=== PATIENT | female | born 1995 | race Caucasian/White ===

== ENCOUNTER 2022-01-26 19:00 | Inpatient (IN) | payer BC, SELFPAY ==
[2022-01-26 19:33] VITALS: PULSE 95; O2SAT 98
[2022-01-26 19:34] VITALS: BP 140/84; PULSE 97
[2022-01-26 19:35] VITALS: TEMP 36.6
[2022-01-26 19:42] VITALS: BMI 31.6
[2022-01-26] MEDS: Lactated Ringers 1,000 ML 50 ML IV (19:45)
[2022-01-26 20:10] LABS: Absolute Lymphocyte Count 1.58 X10^3/uL (0.83-4.51); Absolute Neutrophil Count 9.6 X10^3/uL (2.0-7.7); Basophil# 0.03 X10^3/uL; Basophil% 0.2 % (0-1); Eosinophil# 0.05 X10^3/uL; Eosinophils% 0.4 % (0-5); Hematocrit 37.7 % (37-47); Lymphocyte # 1.58 X10^3/ul (0.83-4.51); Lymphocyte % 13.1 % (19-41); Mean Corp Hgb Conc 34.5 g/dL (32-36); Mean Corpuscular Hgb 30.7 pg (27.0-32.0); Mean Corpuscular Volume 89.1 fL (81-99); Mean Platelet Vol. 11.5 fl (6.2-12.0); Monocyte# 0.59 X10^3/uL; Monocyte% 4.9 % (0-10); NRBC Flagged by Analyzer 0 % (0-5); Neutrophil # 9.55 X10^3/uL (2.7-7.7); Neutrophil % 79.3 % (47-70); Platelet Count 173 K/mm3 (150-450); RBC Distribution Width CV 12.3 % (11.6-14.6); RBC Distribution Width SD 39.8 fl (35.1-43.9); Red Blood Count 4.23 M/mm3 (4.2-5.4); White Blood Count 12.1 K/mm3 (4.4-11.0)
[2022-01-26] MEDS: miSOPROStol 25 MCG TABLET PO (20:55)
--- NOTE | 2022-01-26 21:46 | HP.PCM.OB_ITS ---
HPI - General General Date of Admission: 01/26/22 HPI Narrative REMEDIOS REYEZ, is a 26 F who presents at 39w2d for elective induction of labor. . uncomplicated. Maternal Data Information Final BEBETO: 01/24/22 Final BEBETO Source: LMP PFSH PFSH Medical History no medical history Home Medications bfdrigbe-[id number]-Rb-FA 1 mg tablet 1 tab PO 1XD Check with primary doctor 01/26/22 [History Last Taken 01/25/22] Allergy/AdvReac Type Severity Reaction Status Date / Time No Known Allergies Allergy Verified 01/26/22 19:40 Surgical History no surgical history Social History Smoking Status: Never smoker History Elective abortions Hx Para 0 Spontaneous abortions Hx # Term Pregnancies Ectopic pregnancies Hx # Pregnancies Multiple births # of living children NST FHR Rate Baby A Baseline: 125 Variability:: Moderate Accelerations:: 15 x 15 Decelerations:: None FHR Category:: Category I Uterine Activity:: None ROS Constitutional Constitutional: Reports systems reviewed and no addt'l complaints, except as documented; Denies headache(s) Eyes Eyes: Denies acute decrease in peripheral vision, blurry vision or change in vision ENT HEENT: Reports systems reviewed and no addt'l complaints, except as documented Cardiovascular Cardiovascular: Denies chest pain or dizziness Respiratory/Chest Respiratory/Chest: Denies cough, dyspnea, dyspnea on exertion, shortness of breath at rest or shortness of breath with exertion Gastrointestinal Gastrointestinal: Denies abdominal pain, diarrhea, nausea or vomiting Genitourinary Genitourinary: Denies abdominal discomfort or movement Musculoskeletal Musculoskeletal: Denies limited range of motion Integumentary Integumentary: Reports systems reviewed and no addt'l complaints, except as documented Neurologic Neurologic: Reports systems reviewed and no addt'l complaints, except as documented Psychiatric Psychiatric: Reports systems reviewed and no addt'l complaints, except as documented Endocrine Endocrinology: Reports systems reviewed and no addt'l complaints, except as documented Hematologic/Lymphatic Hematologic/Lymphatic: Reports systems reviewed and no addt'l complaints, except as documented Allergic/Immunologic Allergic/Immunologic: Reports systems reviewed and no addt'l complaints, except as documented Vital Signs Vital Signs Vital Signs: 01/26/22 19:33 01/26/22 19:33 01/26/22 19:34 Temperature Temperature Source Pulse Rate 95 Blood Pressure 140/84 H BP Systolic 140 BP Diastolic 84 Pulse Ox 98 01/26/22 19:34 01/26/22 19:35 01/26/22 19:34 Temperature 97.9 F Temperature Source Temporal Pulse Rate 97 Blood Pressure BP Systolic BP Diastolic Pulse Ox Weight Weight: 184 lb Body Mass Index (BMI) 31.6 Physical Exam Const alert and oriented x3 General Appearance: cooperative Orientation / Consciousness: awake, oriented to person, oriented to place and oriented to time Exam Limitations: no limitations HEENT normocephalic Head and Scalp: normal to inspection, normocephalic and atraumatic Face and Sinus: normal facial exam Eyes General Eye: normal appearance of both eyes Neck full ROM Chest Chest: symmetrical chest wall rise Resp normal respiratory effort and normal air movement Auscultation: clear to auscultation bilaterally Cardio regular rate, regular rhythm, S1 normal heart sound, S2 normal heart sound, no murmurs, no rub, no gallops and no clicks GI normal to inspection, nondistended, normoactive bowel sounds and non-tender appearance of the vagina normal Bladder / Kidney Exam: no CVA tenderness Back/Spine normal ROM Extremity normal to inspection and full ROM Skin no rashes or lesions noted Neuro oriented x3, CN's II-XII intact bilaterally and moves all extremities Sensorium / Orientation: awake, alert and oriented to person Motor Exam: clonus absent Deep Tendon Reflexes: Rt Patellar (L4): 2+ and Lt Patellar (L4): 2+ Labs Labs Labs: Blood Type O POSITIVE Antibody Screen NEGATIVE Hct 37.7 % (37-47) Hgb 13.0 g/dL (12.0-15.0) HIV negative RPR negative HepB negative Rubella Immune GC/CT negative GBS negative Assessment & Plan (1) Encounter for elective induction of labor: PLAN: Plan 1) Admit for induction of labor 2) Routine labs 3) Cytotec PO with julio for cervical ripening. Then pitocin per policy as indicated 4) Continuous EFM 5) Pain management upon request 6) [facility] physician and notified of patient status
[2022-01-26 22:44] VITALS: BP 141/83; PULSE 84
[2022-01-26 22:45] VITALS: PULSE 82; TEMP 36.7; O2SAT 100
[2022-01-26] MEDS: 0.9% Normal Saline Single 100 ML IV.SOLN. INTRA-UTER (22:53)
--- NOTE | 2022-01-26 22:57 | OB.TRI.PN_ITS ---
Progress Notes Progress Note: Resting in bed. O: Hein catheter inserted intracervically, 30ml NS instilled. Patient tolerated well A:Induction of labor P: 1) Hein and cytotec for cervical ripening 2) BP mildly elevated, preeclampsia labs Laboratory Studies: Laboratory Tests 01/26/22 01/26/22 Range/Units 19:45 19:45 WBC 12.1 H (4.4-11.0) K/mm3 RBC 4.23 (4.2-5.4) M/mm3 Hgb 13.0 (12.0-15.0) g/dL Hct 37.7 (37-47) % MCV 89.1 (81-99) fL MCH 30.7 (27.0-32.0) pg MCHC 34.5 (32-36) g/dL RDW Std Deviation 39.8 (35.1-43.9) fl RDW Coeff of Jessi 12.3 (11.6-14.6) % Plt Count 173 (150-450) K/mm3 MPV 11.5 (6.2-12.0) fl Immature Gran % (Auto) 2.100 H (0.0-0.9) % Neut % (Auto) 79.3 H (47-70) % Lymph % (Auto) 13.1 L (19-41) % [place] % (Auto) 4.9 (0-10) % Eos % (Auto) 0.4 (0-5) % Baso % (Auto) 0.2 (0-1) % Absolute Neuts (auto) 9.6 H (2.0-7.7) X10^3/uL Absolute Lymphs (auto) 1.58 (0.83-4.51) X10^3/uL Nucleated RBC % 0 (0-5) % Blood Type O POSITIVE Antibody Screen NEGATIVE
[2022-01-26 23:50] LABS: AST(SGOT) 14 U/L (15-37); Alanine Aminotransfer ALT/SGPT 16 U/L (13-56); Creatinine, Serum 0.64 mg/dL (0.55-1.02); EST Glomerular Filtration Rate 118 mL/min (>60); Est Glom Filt Rate - Afr Amer 142 mL/min (>60); Estimated Creatinine Clearance 115.03 ml/min
[2022-01-27] VITALS (52 sets, daily range): BP systolic 110–143; BP diastolic 7–89; PULSE 72–111; RESP 14–16; TEMP 35.9–37.7; O2SAT 97–100
[2022-01-27 00:20] LABS: Protein, Urine (Random) 15.8 mg/dL (<11.9); Protein:Creat Ratio 350 mg/g CRE (0-200)
[2022-01-27] MEDS: miSOPROStol 25 MCG TABLET PO ×2 (01:11→05:26)
--- NOTE | 2022-01-27 09:08 | PCM.PN.OB ---
Subjective Subjective Patient comfortable Objective Data Objective Data Vital Signs: Vital Signs Temp Pulse BP Pulse Ox 98.4 F 90 139/81 H 99 01/27/22 08:54 01/27/22 08:54 01/27/22 08:54 01/27/22 08:54 Weight: 184 lb Body Mass Index (BMI) 31.6 Lab / Micro Data Result Diagrams: 01/26/22 19:45 01/26/22 23:05 Labs: Laboratory Results - last 24 hr 01/26/22 19:45: WBC 12.1 H, RBC 4.23, Hgb 13.0, Hct 37.7, MCV 89.1, MCH 30.7, MCHC 34.5, RDW Std Deviation 39.8, RDW Coeff of Jessi 12.3, Plt Count 173, MPV 11.5, Immature Gran % (Auto) 2.100 H, Neut % (Auto) 79.3 H, Lymph % (Auto) 13.1 L, [place] % (Auto) 4.9, Eos % (Auto) 0.4, Baso % (Auto) 0.2, Absolute Neuts (auto) 9.6 H, Absolute Lymphs (auto) 1.58, Nucleated RBC % 0 01/26/22 19:45: Blood Type O POSITIVE, Antibody Screen NEGATIVE 01/26/22 23:05: Creatinine 0.64, Estim Creat Clear Calc 115.03, Est GFR (MDRD) Af Amer 142, Est GFR (MDRD) Non-Af 118, Uric Acid 5.0, AST 14 L, ALT 16 01/26/22 23:55: U Random Total Protein 15.8 H, Urine Creatinine 45.10, Protein/Creatinin Ratio 350 H Micro: Microbiology 01/26/22 19:45 Nasal Secretion SARS-CoV-2 Antigen (Rapid) - Final Physical Exam Narrative: cvx - 4/70/-3 NST FHR Rate Baby A Baseline: 130 Variability:: Moderate Accelerations:: 15 x 15 Decelerations:: None Uterine Activity:: Irregular Assessment & Plan (1) Encounter for elective induction of labor: PLAN: AROM clear fluid will start pitocin at 9:30am
[2022-01-27] MEDS: Oxytocin 30 units/NS 500 ml 30 UNITS/500 ML IV.SOLN IV (09:47)
[2022-01-27] MEDS: Lactated Ringers 1,000 ML 50 ML IV (12:27)
[2022-01-27] MEDS: LACTATED RINGERS 500 ML 999 ML IV ×2 (13:00→14:26)
[2022-01-27] MEDS: fentaNYL-bupivacaine (epidural) 100 ML BAG EPIDURAL (13:55)
[2022-01-27] MEDS: Amnioinfusion- 0.9% NS 1,000 ML IV.SOLN. 1000 ML INTRA-UTER (14:52)
[2022-01-27] MEDS: Acetaminophen 500 MG Tablet PO (16:46)
[2022-01-27] MEDS: Sodium Citrate/Citric Acid 30 ML UDC PO (16:47)
[2022-01-27] MEDS: Cefazolin 2 GM in 0.9% Normal Saline 100 ML IV (17:10)
--- NOTE | 2022-01-27 17:52 | EX.PCM.OBRPT ---
Maternal Data Information Final BEBETO: 01/31/22 Gestational age: 40&3 Details Operative Information Date of Procedure: 01/27/22 Pre-Operative Diagnosis: (1) Inability of fetus to tolerate labor (2) Dermal implant in place Post-Operative Diagnosis: Same Indications Narrative: The patient was taken to the operating room where epidural anesthesia was placed & found to be adequate. She was prepped and draped in the dorsal supine position with a leftward tilt. Patients right sided (RLQ of abdomen) dermal implant was removed by grasping it with an mila & then using a scalpel to excise it. A Pfannenstiel skin incision was then made approximately 2 cm above the symphysis pubis and carried through to the underlying fascia with the scalpel. The fascia was incised incised in the midline and extended laterally with the Cuevas scissors. The rectus muscles were in the midline and the peritoneum was entered carefully and bluntly. The peritoneal incision was stretched and the bladder blade was inserted. Vesicouterine peritoneum was tented up, incised & then bladder flap created gently. The uterine incision was made in a low transverse fashion with the scalpel and extended superiorly and inferiorly with blunt dissection. The 's head was brought to the incision in the flexed position and delivered without difficulty. The head was gently guided to allow delivery of the anterior and posterior shoulders. The body then delivered with fundal pressure in the standard fashion. The 3VC cord was clamped and cut in delayed fashion. The was handed off to the waiting pediatric psychologist. The placenta was delivered with fundal massage and gentle traction in the standard fashion. The uterus was exteriorized and cleared of clots and debris. The uterine incision was closed with #1 Vicryl suture in a running locked fashion. Monocryl suture was used in an imbricating fashion. The incision was examined and was found to be hemostatic. 1 figure of 8 suture was placed over the blader flap in addition to bovie cautery to obtain excellent hemostasis. The uterus was returned to the abdominal cavity. After irrigating Floridalma was placed over the uterine incision as some areas were denuded (but hemostatic). The peritoneum was closed with vicryl suture in running fashion The rectus muscle was examined and any bleeding was Bovie cauterized. The fascia was closed with PDS suture in a running standard fashion. The subcutaneous tissue was examining and any bleeding was Bovie cauterized. The subcutaneous tissue was reapproximated with interrupted sutures. The skin & dermal implant excision site was closed in a subcuticular fashion by the CATEGORY MANAGER while I was present in the labor & delivery unit. The remainder of the procedure was performed by me with assistance. All sponge, lap, and needle counts were correct. The patient was taken to her room for recovery in a stable condition. Classification: NIR Procedure Type: low transverse (with excision of dermal implant) Type of Anesthesia: Spinal Antibiotic Given: Ancef 2 grams IV x1 and Zithromax 500 mg/5 mL X1 Drain: Hein to straight drain Estimated Blood Loss: 800ml Fluids Replaced: 1,000ml Procedure Start Time: 17:14 Procedure Stop Time: 18:00 Findings Description of Procedure: Normal maternal uterus and adnexa Presentation: Positive for Vertex Amniotic Membrane Rupture Type: Artificial Amniotic Fluid Description: Clear Placental Delivery Description: Expressed Placenta Disposition: [facility] Specimen(s) Sent to Pathology: None Cord Vessel Description: 3 Vessels Cord Entanglement: - (Around body x2, tight & with compression) Infant A Gender: Female (weight = 7lbs, [place]) (1 minute): 8 (5 minute): 9 Delayed Cord Clamping: Yes Complications Complications: None
[2022-01-27] MEDS: Ketorolac 30 MG/ML Syringe IV ×2 (18:27→23:56)
[2022-01-27] MEDS: Oxytocin 30 units/NS 500 ml 30 UNITS/500 ML IV.SOLN 167 UNITS IV (18:30)
[2022-01-27] MEDS: Lactated Ringers 1,000 ML 100 ML IV (21:42)
[2022-01-27] MEDS: Acetaminophen 500 MG Tablet 1000 MG PO (23:56)
[2022-01-28] VITALS (7 sets, daily range): BP systolic 116–135; BP diastolic 50–79; PULSE 85–105; RESP 15–21; TEMP 36.4–36.8; O2SAT 99
[2022-01-28] MEDS: Enoxaparin 40 MG/0.4 ML Syringe SC (05:48)
[2022-01-28] MEDS: 0.9% Saline Lock 10 ML Syringe IV ×2 (05:49→11:42)
[2022-01-28] MEDS: Acetaminophen 500 MG Tablet 1000 MG PO ×3 (05:49→18:22)
[2022-01-28] MEDS: Ketorolac 30 MG/ML Syringe IV ×2 (05:49→11:41)
[2022-01-28 06:24] LABS: Hemoglobin 10.5 g/dL (12.0-15.0); Mean Corpuscular Hgb 31.7 pg (27.0-32.0); Mean Corpuscular Volume 90.6 fL (81-99); Mean Platelet Vol. 11.2 fl (6.2-12.0); Platelet Count 154 K/mm3 (150-450); RBC Distribution Width CV 12.5 % (11.6-14.6); RBC Distribution Width SD 41.1 fl (35.1-43.9); Red Blood Count 3.31 M/mm3 (4.2-5.4); White Blood Count 12.8 K/mm3 (4.4-11.0)
--- NOTE | 2022-01-28 08:37 | PCM.PN.OB ---
Subjective Subjective Patient seen at bedside. Up ambulating in room. Denies any pain. with minimal support. Pain controlled. Denies any headaches, dizziness, SOB or CP. Desires discharge home tomorrow. Objective Data Objective Data Vital Signs: Vital Signs Temp Pulse Resp BP Pulse Ox O2 Del Method 97.7 F L 91 17 126/76 H 99 Room Air 01/28/22 08:08 01/28/22 08:08 01/28/22 08:08 01/28/22 08:08 01/28/22 05:40 01/28/22 08:08 Oxygen Delivery Method Room Air Weight: 184 lb Body Mass Index (BMI) 31.6 Intake & Output: Intake and Output for Last 24 Hours 01/26/22 01/27/22 01/28/22 23:59 23:59 23:59 Intake Total 4476.74 / 4476.74 463.33 / 463.33 Output Total 1450 / 1450 400 / 400 Balance 3026.74 / 3026.74 63.33 / 63.33 Lab / Micro Data Result Diagrams: 01/28/22 06:00 01/26/22 23:05 Labs: Laboratory Results - last 24 hr 01/28/22 06:00: WBC 12.8 H, RBC 3.31 L, Hgb 10.5 L, Hct 30.0 L, MCV 90.6, MCH 31.7, MCHC 35.0, RDW Std Deviation 41.1, RDW Coeff of Jessi 12.5, Plt Count 154, MPV 11.2 Micro: Microbiology 01/26/22 19:45 Nasal Secretion SARS-CoV-2 Antigen (Rapid) - Final ROS Eyes Eyes: Denies blurry vision, change in vision or spots in vision ENT HEENT: Denies dizziness or headache(s) Cardiovascular Cardiovascular: Denies abdominal pain, chest pain or dyspnea Respiratory/Chest Respiratory/Chest: Denies cough, dyspnea, shortness of breath at rest or shortness of breath with exertion Gastrointestinal Gastrointestinal: Denies abdominal pain, diarrhea or vomiting Musculoskeletal Musculoskeletal: Reports none Integumentary Integumentary: Denies rash Neurologic Neurologic: Denies dizziness, headache(s), memory loss or weakness Physical Exam Narrative Dressing is dry and intact Const alert and no apparent distress General Appearance: cooperative and comfortable Exam Limitations: no limitations HEENT normocephalic Eyes General Eye: normal appearance of both eyes Neck full ROM General: normal visual inspection Chest Chest: symmetrical chest wall rise Resp normal respiratory effort and normal air movement Effort and Inspection: symmetric chest movement Auscultation: clear to auscultation bilaterally Cardio regular rate and regular rhythm GI normal to inspection, nondistended, normoactive bowel sounds Back/Spine normal ROM Extremity full ROM and no calf tenderness General Extremity: normal exam except as noted Skin no rashes or lesions noted Neuro CN's II-XII intact bilaterally Psych mental status grossly normal Assessment & Plan (1) Status post primary low transverse section: (2) Care and examination of lactating mother: PLAN: Plan POD 1 Primary C/S Pain control Routine care Breast feeding support Anticipate discharge home tomorrow
[2022-01-28] MEDS: Senna/Docusate Sodium 1 Tablet PO (09:54)
--- NOTE | 2022-01-28 10:15 | NURSING ---
Epidural catheter removed, blue tip intact.
--- NOTE | 2022-01-28 12:45 | DCINST_ITS ---
Discharge Instructions Diet Discharge Diet: No restrictions Activity Discharge Activity: May Not Drive and May Shower May resume sexual activity in: 6 weeks Ice area for (Minutes): 15 Weight Bearing Status: Weight bearing as tolerated Lifting Restrictions: nothing heavier than baby Dressing / Incision Call your doctor if your incision/area has: Continuous Slow Oozing, Sudden Increased Bleeding, Increased Pain/ Swelling, Increased Redness, Foul Smelling Discharge and Swelling at the incision site Call your doctor if you observe: Fever of 101 or Higher, Coldness, Increased Pain, Numbness or Tingling, Change in Color, Inability to urinate, Inability to have a bowel movement, Using more than 1 pad per hour, Shortness of breath, Dizziness, Fainting spells, Swelling in the ankles, Chest pain, Increased palpitations (irregular heartbeat), Calf discomfort and Uncontrolled pain Suture Line Care: Avoid Pulling/Pushing and Avoid Pinching/Bending Remove Dressing in: 4 days Cleanse incision/area with: Soap & Water Follow Up Care When: 1 week incision check 6 weeks visit Test Results: Test results from this visit will be discussed in further detail at your follow- up appointment, if applicable. Discharge Plan Admission Admit Date/Time: 01/26/22 19:00 Primary Reason for Your Visit: surgery Attending Provider: Cristiane Deleon Primary Care Provider: Shanita Metzger Primary Discharge Orders/Prescriptions Prescriptions: New oxycodone-acetaminophen [Endocet] 5-325 mg tablet 1 tab PO Q6H PRN (Reason: pain) 7 Days Qty: 10 0RF ibuprofen 600 mg tablet 600 mg PO Q6H PRN (Reason: pain) Qty: 30 0RF docusate sodium [Colace] 100 mg capsule 100 mg PO BID Qty: 30 0RF Continued iixyccvc-xuy-Nv-FA 1 mg Tablet 1 tab PO 1XD Referrals / Follow Up: Care PhysicianShanita Primary [Primary Care Provider] - Disposition Disposition (needs filled in before D/C Order can be placed): Home, Self Care
--- NOTE | 2022-01-28 18:00 | NURSING ---
Pt to call and schedule 1 week follow up appt with [facility].
[2022-01-28] MEDS: Ibuprofen 600 MG Tablet PO (18:22)
--- NOTE | 2022-01-28 18:33 | NURSING ---
Reviewed and agreed with Polo RN charting.
== END 2022-01-28 23:20 | disposition home or self-care (01) | DRG 788 ==
PROVIDERS: Advanced Practice Midwife; Admitting Provider Obstetrics & Gynecology; Visit Provider Obstetrics & Gynecology
DX: O62.2 Other uterine inertia (principal); O69.1XX0 Labor and delivery complicated by cord around neck, with compression, not applicable or unspecified; Z37.0 Single live birth; Z3A.39 39 weeks gestation of pregnancy
CPT/HCPCS: 59025; 59050; 82565; 82570; 84156; 84450; 84460; 84550; 85025; 85027; 86850; 86900; 86901; 87811; 99218; 99251; J7030; J7120; A4216; G0378; G0463; J2405

== ENCOUNTER 2023-09-13 13:10 | Inpatient (IN) | payer OTHER, SELFPAY ==
[2023-09-13] VITALS (13 sets, daily range): BP systolic 94–139; BP diastolic 71–93; PULSE 66–91; RESP 16; TEMP 36.4–36.7; O2SAT 96–100; BMI 29.3
[2023-09-13] MEDS: Lactated Ringers 1,000 ML 999 ML IV (14:30)
[2023-09-13 14:45] LABS: Absolute Lymphocyte Count 1.47 X10^3/uL (0.83-4.51); Basophil# 0.03 X10^3/uL; Basophil% 0.3 % (0-1); Eosinophil# 0.08 X10^3/uL; Eosinophils% 0.8 % (0-5); Hematocrit 37.7 % (37-47); Hemoglobin 13.2 g/dL (12.0-15.0); Lymphocyte # 1.47 X10^3/ul (0.83-4.51); Lymphocyte % 14.2 % (19-41); Mean Corpuscular Hgb 30.6 pg (27.0-32.0); Mean Corpuscular Volume 87.5 fL (81-99); Mean Platelet Vol. 10.6 fl (6.2-12.0); Monocyte# 0.56 X10^3/uL; Monocyte% 5.4 % (0-10); NRBC Flagged by Analyzer 0 % (0-5); Neutrophil # 8.01 X10^3/uL (2.7-7.7); Neutrophil % 77.4 % (47-70); Platelet Count 183 K/mm3 (150-450); RBC Distribution Width CV 12.3 % (11.6-14.6); RBC Distribution Width SD 39.1 fl (35.1-43.9); Red Blood Count 4.31 M/mm3 (4.2-5.4); White Blood Count 10.4 K/mm3 (4.4-11.0)
[2023-09-13] MEDS: Acetaminophen 500 MG Tablet 1000 MG PO ×2 (15:16→21:12)
[2023-09-13] MEDS: Lactated Ringers 1,000 ML 150 ML IV (15:19)
[2023-09-13 15:51] LABS: Syphilis Antibodies Non-reactive
--- NOTE | 2023-09-13 17:45 | HP.PCM.OB_ITS ---
HPI - General General Date of Admission: 09/13/23 Date of Service: 09/13/23 Chief Complaint: SROM HPI Narrative REMEDIOS REYEZ, is a 28 F who presents with SROM at home for clear fluid around 7 am. No ctx, vb. Good FM. She offers no other complaints. [facility] Medical History (Updated 09/13/23 @ 17:[address] Jazmine Bhat DO) depression Home Medications nywzjecu-rgi-Ho-FA 1 mg tablet 1 tab PO 1XD Check with primary doctor 01/26/22 [History Last Taken 01/25/22] docusate sodium 100 mg capsule (Colace) 100 mg PO BID #30 caps 01/28/22 [Rx Last Taken Unknown] ibuprofen 600 mg tablet 600 mg PO Q6H PRN pain #30 tabs 01/28/22 [Rx Last Taken Unknown] oxycodone-acetaminophen 5 mg-325 mg tablet (Endocet) 1 tab PO Q6H PRN pain 7 days #10 tabs 01/28/22 [Rx Last Taken Unknown] Allergy/AdvReac Type Severity Reaction Status Date / Time No Known Allergies Allergy Verified 09/13/23 13:58 Surgical History (Updated 09/13/23 @ 17:[address] Jazmine Bhat, ) History of surgery Status post primary low transverse section Social History Smoking Status: Never smoker History 1 Elective abortions Hx Para 1 Spontaneous abortions Hx # Term Pregnancies Ectopic pregnancies Hx # Pregnancies Multiple births # of living children 1 NST FHR Rate Baby A FHR Category:: Category I Uterine Activity:: no regular ctx's Vital Signs Vital Signs Vital Signs: 09/13/23 13:45 09/13/23 13:45 09/13/23 13:45 Temperature Temperature Source Temporal Pulse Rate 91 Respiratory Rate Blood Pressure 139/83 H Blood Pressure Mean BP Systolic 139 BP Diastolic 83 Blood Pressure Source Blood Pressure Position Blood Pressure Location Pulse Ox Oxygen Delivery Method 09/13/23 13:45 09/13/23 13:45 09/13/23 13:45 Temperature 98.1 F Temperature Source Pulse Rate Respiratory Rate 16 Blood Pressure Blood Pressure Mean BP Systolic BP Diastolic Blood Pressure Source Blood Pressure Position Blood Pressure Location Pulse Ox 97 Oxygen Delivery Method 09/13/23 14:56 Temperature 98.1 F Temperature Source Temporal Pulse Rate 91 Respiratory Rate 16 Blood Pressure 139/83 H Blood Pressure Mean 101 BP Systolic BP Diastolic Blood Pressure Source Monitor Blood Pressure Position Semi-Fowlers Blood Pressure Location Left Arm Pulse Ox 97 Oxygen Delivery Method Room Air Weight Weight: 171 lb 2 oz Body Mass Index (BMI) 29.3 Labs Labs Labs: Blood Type O POSITIVE Antibody Screen NEGATIVE Hct 37.7 % (37-47) Hgb 13.2 g/dL (12.0-15.0) Syphilis Total Ab Non-reactive Rhogam given: No Assessment & Plan (1) 38 weeks gestation of : PLAN: Discussed r/b/a repeat section and patient desires to proceed with repeat C/S for SROM. She was scheduled for a repeat C/S later this week. Ancef pre op. Routine pre op care. (2) SROM (spontaneous rupture of membranes): (3) History of section:
[2023-09-13] MEDS: Sodium Citrate/Citric Acid 30 ML UDC PO (17:47)
[2023-09-13] MEDS: Cefazolin 2 GM in 0.9% Normal Saline (100mL Bag) 100 ML IV (17:48)
--- NOTE | 2023-09-13 18:35 | FALS_PTH ---
PATIENT: REMEDIOS REYEZ LOC: [facility] U#:[id number] AGE/SX: 28/F ROOM: WP005 RE09/13/[address]: Dr. Jazmine Bhat DO : 1995 BED: 1 DIS: 09/15/2023 SPEC #: [id number] RECD: 09/13/23 21:59 STATUS: CESILIA SHANTELLE #: [id number] LULU: 09/13/23 18:[address]: Jazmine Bhat DEPT: SURGICAL PATHOLOGY RECD BY: Vinita Hutchison ENTERED: 09/14/23 08:41 SP TYPE: FALL TUBES OTHR DR: No Primary Care Phys Tissues: Fallopian tube Procedures: Surgery Specimen Level II HEADER OPERATION: Tubal ligation PRE-OP DIAGNOSIS: Sterilization TISSUE SUBMITTED: Fallopian tubes MICROSCOPIC DIAGNOSIS Right and left fallopian tubes, bilateral salpingectomies: Complete cross-sections of two fallopian tubes with no pathologic change. AM: 09/15/23 MICROSCOPIC DESCRIPTION Slides are reviewed. GROSS DESCRIPTION Received in fixative is one container labeled with the patient's name and designated bilateral fallopian tubes. The specimen consists of bilateral fallopian tubes including fimbrial ends. Suture is present free in the container. The fallopian tube measures 6.0 cm in length and 0.5 cm in diameter and 7.0cm in length and 0.5cm in diameter. The fallopian tubes are not identified as right or left. Sections reveal unremarkable cut surfaces. Improvement Specialist sections are submitted in two cassettes with each cassette containing one fallopian tube. / ASHLYN: 09/14/23 TC:4 CPT: 47755 x2
[2023-09-13] MEDS: Oxytocin 15 Units/NS 250ml 15 UNITS/250 ML IV.SOLN 83 UNITS IV (19:40)
--- NOTE | 2023-09-13 19:46 | OP.PCM_ITS ---
Problems Associated Problem List Diagnoses (1) History of section: (2) SROM (spontaneous rupture of membranes): (3) 38 weeks gestation of : Report of Operation Date of Procedure: 09/13/23 Pre-Operative Diagnosis: 38 week gestation, history prior section, SROM Post-Operative Diagnosis: As above Surgery/Procedure Performed:: RLTCS via pfannenstiel incision Description of Surgical Findings:: Moderate adhesive disease. Fascia adhered to the rectus muscles. Bladder adhered to the mid uterus. A 2 cm uterine window was noted. Clear fluid. VMI in cephalic presentation with apgars 9,9. Normal appearing placenta. Surgeon: Jazmine Bhat tufting machine operator single needle: Yamilka NATARAJAN Type of Anesthesia: Spinal Special Medications: None Specimen's removed: Placenta Drains: Hein Estimated Blood Loss (mL): 700 Fluids Replaced: 950 mL Description of Procedure: Indications: Pt presented from home with SROM at 38 weeks. Discussed r/b/a repeat section and she desired to proceed. She requested sterilization. Discussed r/b/a sterilization and reviewed risk of regret. Discussed other options for control. She states she is 100% certain she wants to proceed with sterilization, and she understands other options for control. Procedure: The patient was taken to the operating room where spinal anesthesia was found to be adequate. She was prepped and draped in the dorsal supine position with a leftward tilt. A Pfannenstiel skin incision was made with a scalpel and carried down to the underlying layer of fascia. The fascia was incised in midline. The fascial incision was extended laterally using Cuevas scissors. The fascia was dissected off the rectus muscles in a cephalad and caudad direction with dense adhesions noted. The rectus muscles were already in the midline. The peritoneum was entered with sharp dissection with good visualization of the bladder. The peritoneal incision was extended bluntly with lateral traction. A bladder blade was inserted. Bladder adhesions were noted to the uterus, and the adhesions were taken down to create a bladder flap using Metzenbaum scissors. A 2 cm uterine window was noted. A low transverse incision was made on the uterus with a scalpel. Membranes were ruptured with an Allis clamp for clear fluid. The uterine incision was extended with cephalad and caudad traction. The head followed by the body of the was delivered without any force, traction, or delay and the 's head was flexed throughout delivery. The cord was clamped and cut after a slight delay, and a vigorous viable male was handed off to the awaiting nursery staff. Placenta delivered spontaneously. The uterus was cleared of all clot and debris. Uterus was exteriorized. The hysterotomy was closed with 1-0 Vicryl in a running locked fashion. Hemostasis was noted. Again confirmed the patient desired sterilization. The right fallopian tube was followed out to the fimbriated end using Violeta clamps. Using the LigaSure device the mesosalpinx was serially clamped, cauterized, and transected hugging adjacent to the fallopian tube until reaching level of the cornua, at which point the fallopian tube was transected. The left fallopian tube was followed out to the fimbriated end using Violeta clamps. The mesosalpinx was serially clamped, cauterized, and transected until reaching level of the cornua at which point the fallopian tube was transected and removed. Bilateral fallopian tubes were sent to pathology for review. The ovaries were normal-appearing. Hemostasis was noted. The uterus was placed back into the abdomen. Floridamla was placed over the hysterotomy and bladder flap. Hemostasis was again noted. The peritoneum was reapproximated using 3-0 Vicryl in a running fashion. The subfascial space was noted to be hemostatic. The fascia was closed with strata fix in a running fashion. Subcutaneous space was irrigated and made hemostatic with the Bovie cautery. Subcutaneous space was reapproximated using 3-0 Vicryl. The skin was closed with 4-0 Monocryl in a subcuticular fashion. A dressing was placed. Instrument, sharp, sponge counts were correct and the patient was taken to the recovery room in stable condition. Weigher Operator Indira NATARAJAN was present for the entire procedure and assisted with draping the patient, delivery of , and closure. Grafts/Implants Used: None Complications None Admit VTE Documentation VTE Present on Admission: No VTE Mechan Device Prophylaxis: SCD's
[2023-09-13] MEDS: Ketorolac 30 MG/ML Syringe IV (20:24)
[2023-09-13 21:57] LABS: Pathology Specimen OB SEE PATHOLOGY REPORT
[2023-09-13] MEDS: Lactated Ringers 1,000 ML 100 ML IV (22:42)
[2023-09-14] VITALS (7 sets, daily range): BP systolic 112–132; BP diastolic 59–86; PULSE 63–81; RESP 16; TEMP 36.2–36.8; O2SAT 97–100
[2023-09-14] MEDS: Acetaminophen 500 MG Tablet 1000 MG PO ×4 (02:38→20:37)
[2023-09-14] MEDS: Ketorolac 30 MG/ML Syringe IV ×3 (02:38→15:20)
[2023-09-14 06:32] LABS: Hematocrit 36.1 % (37-47); Hemoglobin 12.1 g/dL (12.0-15.0); Mean Corp Hgb Conc 33.5 g/dL (32-36); Mean Corpuscular Hgb 29.5 pg (27.0-32.0); Mean Platelet Vol. 10.6 fl (6.2-12.0); Platelet Count 156 K/mm3 (150-450); RBC Distribution Width CV 12.4 % (11.6-14.6); White Blood Count 12.8 K/mm3 (4.4-11.0)
--- NOTE | 2023-09-14 08:30 | PN.OBGYN_ITS ---
Subjective Subjective Denies complaints Objective Data Objective Data Vital Signs: Vital Signs Temp Pulse Resp BP Pulse Ox O2 Del Method 98.1 F 78 16 124/59 H 98 Room Air 09/14/23 04:23 09/14/23 06:12 09/14/23 06:12 09/14/23 04:23 09/14/23 06:12 09/14/23 06:12 Oxygen Delivery Method Room Air Weight: 171 lb 2 oz Body Mass Index (BMI) 29.3 Intake & Output: Intake and Output for Last 24 Hours 09/12/23 09/13/23 09/14/23 23:59 23:59 23:59 Intake Total 2121.67 / 2121.67 580 / 580 Output Total 1100 / 1100 900 / 900 Balance 1021.67 / 1021.67 -320 / -320 Lab / Micro Data 09/14/23 06:20 Labs: Laboratory Results - last 24 hr 09/13/23 14:30: WBC 10.4, RBC 4.31, Hgb 13.2, Hct 37.7, MCV 87.5, MCH 30.6, MCHC 35.0, RDW Std Deviation 39.1, RDW Coeff of Jessi 12.3, Plt Count 183, MPV 10.6, Immature Gran % (Auto) 1.900 H, Neut % (Auto) 77.4 H, Lymph % (Auto) 14.2 L, [place] % (Auto) 5.4, Eos % (Auto) 0.8, Baso % (Auto) 0.3, Absolute Neuts (auto) 8.0 H, Absolute Lymphs (auto) 1.47, Nucleated RBC % 0, Syphilis Total Ab Non- reactive, Blood Type O POSITIVE, Antibody Screen NEGATIVE 09/14/23 06:20: WBC 12.8 H, RBC 4.10 L, Hgb 12.1, Hct 36.1 L, MCV 88.0, MCH 29.5, MCHC 33.5, RDW Std Deviation 40.0, RDW Coeff of Jessi 12.4, Plt Count 156, MPV 10.6 Physical Exam Const alert, oriented x3 and no apparent distress HEENT normocephalic GI soft to palpation, non-tender and non-distended GI Narrative: fundus firm, mid & below umbilicus Incision - bandage c/d/i Extremity normal to inspection and no calf tenderness Assessment & Plan (1) care following delivery: COMMENT: POD#1 PLAN: Plan Heme - HDS, cbc reviewed ID - AF, no signs infection - unable to void and plan for straight cath this am GI - ADAT ROUtine care
[2023-09-14] MEDS: Senna/Docusate Sodium 1 Tablet PO (08:43)
[2023-09-14] MEDS: 0.9% Saline Lock 10 ML Syringe IV (15:22)
[2023-09-14] MEDS: Ibuprofen 600 MG Tablet PO (20:37)
[2023-09-15] MEDS: Ibuprofen 600 MG Tablet PO ×2 (02:37→09:10)
[2023-09-15] MEDS: Acetaminophen 500 MG Tablet 1000 MG PO ×2 (02:38→09:09)
[2023-09-15 02:48] VITALS: BP 126/80; PULSE 66; RESP 16; TEMP 36.6; O2SAT 99
--- NOTE | 2023-09-15 08:22 | PCM.DC.SUM ---
Providers Date of Admission: 09/13/23 Primary Care Physician: Shanita Primary Care Phys Reason For Visit: REPEAT Diagnosis Discharge Diagnosis (1) care following delivery: Status: Acute Code(s): Z39.2 - Encounter for routine follow-up (2) Care and examination of lactating mother: Status: Acute Code(s): Z39.1 - Encounter for care and examination of lactating mother Plan PO Repeat C/S with Bilateral tubal ligation Pain control Blood pressures stable- 120's/70's Desires discharge home today Medications at Discharge Home Medications [id number]-[id number]-FA 1 mg tablet 1 tab PO 1XD Check with primary doctor 01/26/22 docusate sodium 100 mg capsule (Colace) 100 mg PO BID #30 caps 01/28/22 ibuprofen 600 mg tablet 600 mg PO Q6H PRN pain #30 tabs 01/28/22 oxycodone-acetaminophen 5 mg-325 mg tablet (Endocet) 1 tab PO Q6H PRN pain 7 days #10 tabs 01/28/22 acetaminophen 500 mg tablet 1,000 mg (2 x 500 mg) PO Q6H #0 tabs 09/15/23 ibuprofen 600 mg tablet 600 mg PO Q6H #0 tabs 09/15/23 sennosides 8.6 mg-docusate sodium 50 mg tablet (Stool Softener-Stimulant Laxative) 1 - 2 tab PO DAILY #0 tabs 09/15/23 Hospital Course Operations section Summary of Care Provided Minutes Spent on Discharge: 15 Hospital Course: Patient had repeat section with bilateral tubal ligation. Hospital course was uneventful. Physical Exam Narrative Patient seen at bedside. Denies any pain. Denies headache, dizziness, SOB or CP. Ambulating and voiding without difficulty. . Desires discharge home today. Weight / BMI Weight Weight: 171 lb 2 oz Body Mass Index (BMI) 29.3 ABG / Lab / Microbiology Data 09/14/23 06:20 D/C Instructions Discharge Diet: No restrictions May resume sexual activity in: 6-8 weeks Weight Bearing Status: Weight bearing as tolerated Lifting Restrictions: 20 lbs Call your doctor if your incision/area has: Continuous Slow Oozing, Increased Pain/ Swelling, Increased Redness, Foul Smelling Discharge and Swelling at the incision site Call your doctor if you observe: Fever of 101 or Higher, Inability to urinate, Using more than 1 pad per hour, Shortness of breath, Chest pain, Calf discomfort and Uncontrolled pain Remove Dressing in: 5 days Cleanse incision/area with: Soap & Water and Keep Dressing Clean & Dry When: 1 week in office for incision check or sooner if needed 6 weeks Meaningful Use Info Meaningful Use Diagnoses (Choose all that apply): None applicable Discharge Plan Admission Admit Date/Time: 09/13/23 13:10 Primary Reason for Your Visit: Repeat section Attending Provider: Jazmine Bhat Primary Care Provider: Care Physician,No Primary Discharge Orders/Prescriptions Prescriptions: New sennosides-docusate sodium [Stool Softener-Stimulant Laxat] 8.6-50 mg Tablet 1 - 2 tab PO DAILY Qty: 0 0RF acetaminophen 500 mg Tablet 1,000 mg PO Q6H Qty: 0 0RF ibuprofen 600 mg Tablet 600 mg PO Q6H Qty: 0 0RF Continued phcjaumq-gnc-Cs-FA 1 mg Tablet 1 tab PO 1XD No Action oxycodone-acetaminophen [Endocet] 5-325 mg tablet 1 tab PO Q6H PRN (Reason: pain) 7 Days Qty: 10 0RF ibuprofen 600 mg tablet 600 mg PO Q6H PRN (Reason: pain) Qty: 30 0RF docusate sodium [Colace] 100 mg capsule 100 mg PO BID Qty: 30 0RF Hold Instructions: Order Changed Referrals / Follow Up: Glenda George CNM [Med Staff - [facility]] - Care Physician,No Primary [Primary Care Provider] - Disposition Disposition (needs filled in before D/C Order can be placed): Home, Self Care
[2023-09-15 08:55] VITALS: BP 122/77; PULSE 94; RESP 16; TEMP 37; O2SAT 97
[2023-09-15] MEDS: Senna/Docusate Sodium 1 Tablet PO (09:09)
--- NOTE | 2023-09-15 15:04 | CASEMGMT ---
Social Work Assessment Labor and Delivery Unit Patient Address: [address] [place] [address] [address] [address] Phone number: [phone] Date of Referral: 09/15/23 Time of Referral:? 0 Referred By: Jazmine Bhat Date of Intervention: ??09/15/23 Time of Intervention:? 1000 Reason for Referral:? depression Sw completed chart review and acknowledges social work consult due to maternal mental health history positive for depression. Sw presented to bedside and introduced self to mother of baby (MOB- Yi) and father of baby (FOB- Sandeep). Sw explained sw role during hospitalization and completed psychosocial assessment. History obtained from: medical records, MOB and FOB Household composition: Currently residing in the family home is HANNA, DEVAN, their 1.5 year old daughter Mary and now baby when ready for discharge. Parents deny any issues or concerns with their housing, reporting it to be safe and adequate. Patient's parent/guardian status:? 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 They are and have been together for 7 years. HANNA denies any concerns of domestic violence or intimate partner violence. Medical History: ?HANNA is 28 year old female who is 2, para 1- now 2 following labor and delivery of . HANNA received routine care during with [facility]. HANNA presented to hospital and delivered baby via repeat on 09/13/23. Baby boy, named Lion Kay was born weighing 7lb 6oz and his apgars were 9 and 9 at one and five minutes of life, respectfully. HANNA states that she is breast feeding and it is going well. HANNA reports that baby will be followed by Dr. Benitez for pediatrics. Educational Status:? Both parents graduated from high school, no concerns with reading, learning or comprehension. MOB states that attended some college, but did not receive a degree. Financial Status: DEVAN is gainfully employed in [employer]. MOB is a stay at home mom. Infant Supplies:?? Parents have obtained all necessary baby supplies, including: car seat, safe sleep space, clothes, diapers and wipes. MOB states that she has a breast pump for home. Childcare/Caregiver(s):? MOB will be the primary caregiver to baby along with FOB when he is not at work. Transportation:?? Both parents have their drivers license and reliable means of transportation. No barriers at this time. Programs/Agencies Involved: ???Parents are not connected to any community resources that assist them financially. Children Services/Legal Issues:???No history of involvement, no issues or concerns warranting referral to be made at this time. Behavioral Health Issues: ??Mental Health History: HANNA and DEVAN deny mental health history, and no mental health diagnoses. MOB states that she did experience depression after her daughter was born. MOB states at when their daughter was born she cried constantly unless she was sleeping. MOB states that paternal grandma was making issues worse by showing up at their home drunk and wanting to babysit baby, and ultimately starting a lot of drama. MOB states that when their daughter was two months old they had to travel to [place] for her grandmother's . MOB states at that time she was going through a lot of hormonal changes, lifestyle changes and loss. MOB states that she was also restarted back on her control when baby was a couple of months old and that also impacted her mental health. MOB states that she felt overwhelmed, angry and emotional. HANNA reports that eventually things started to level out and her mental health has since improved. ??? Substance Use History:??Parents deny substance use prior to and during . Family History: DEVAN states that his mom started drinking heavily when she and his dad got a divorce. ? Drug Screens: ??No drug screens observed during chart review. Family/Social Stressors:? MOB states that things in their life have improved a lot since they had their daughter. MOB states that paternal grandma is no longer involved in their lives, and so there is no more drama. Parents deny any issues, concerns or stressors at this time. Support Systems: HANNA states that she has a best friend, however DEVAN is her biggest support person. Depression/Shaken Baby/Safe Sleeping:? Sw educated parents on signs and symptoms of baby blues and depression and anxiety. Parents express understanding. Sw educated parents on shaken baby prevention and ABCs of safe sleep. Parents express understanding. ASSESSMENT:? MOB and baby admitted following labor and delivery of . MOB talkative and open regarding her experiences with depression following the delivery of her daughter. MOB states that things look different in their lives at this time, however she is aware that due to her mental health history she may be more susceptible to experiencing mental health symptoms during this period. Sw provided parents with literature on mental health symptoms, Help Me Grow and [facility] list of resources including mental health services and supports. MOB observed to provide loving and appropriate hands on care of . FOB observed to be attentive to MOB's needs. Parents receptive to sw involvement and support. PLAN:? MOB and baby to be discharged when medically ready. ?No other services requested or indicated. Maricarmen Trinidad, DIRECTOR OF CURRICULUM, [employer]
== END 2023-09-15 11:50 | disposition home or self-care (01) | DRG 785 ==
PROVIDERS: Admitting Provider Obstetrics & Gynecology; Visit Provider Obstetrics & Gynecology
DX: O34.211 Maternal care for low transverse scar from previous cesarean delivery (principal); O42.92 Full-term premature rupture of membranes, unspecified as to length of time between rupture and onset of labor; Z37.0 Single live birth; Z3A.38 38 weeks gestation of pregnancy; Z87.59 Personal history of other complications of pregnancy, childbirth and the puerperium; Z30.2 Encounter for sterilization
CPT/HCPCS: 59025; 59050; 85025; 85027; 86780; 86850; 86900; 86901; 88302; 99221; J7120; A4216; G0378; J2405